=== PATIENT | female | born 1945 | race Two or more races ===

== ENCOUNTER 2018-10-06 05:55 | Day surgery (SDC) | payer OTHER | END 2018-10-06 10:40 | disposition home or self-care (01) | LOC: AMB-ENDOS 05:55 | DX: D13.1 Benign neoplasm of stomach (principal); K57.32 Diverticulitis of large intestine without perforation or abscess without bleeding; K64.2 Third degree hemorrhoids ==

== ENCOUNTER 2021-01-30 07:07 | Day surgery (SDC) | payer OTHER | END 2021-01-30 16:25 | disposition home or self-care (01) | LOC: AMB-ENDOS 07:07 | PROVIDERS: ATTEND Colon & Rectal Surgery | DX: D12.4 Benign neoplasm of descending colon (principal); D13.1 Benign neoplasm of stomach; K44.9 Diaphragmatic hernia without obstruction or gangrene; K64.1 Second degree hemorrhoids; Z20.822 Contact with and (suspected) exposure to COVID-19 ==

== ENCOUNTER 2024-07-18 06:00 | Day surgery (SDC) | payer OTHER ==
[2024-07-11 15:15] VITALS: BP 160/72
[~2024-07-18] VITALS: Ht 152.4 cm; Wt 56.7 kg
[~2024-07-18 06:00] MED LIST: SIMVASTATIN5 MG PO; SYNTHROID112 MCG PO; ZESTRIL20 MG PO
[2024-07-18] MEDS ORDERED: METRONIDAZOLE/SODIUM CHLORIDE 500 MG/100 ML PIGGYBACK IV ONE (10:09)
[2024-07-18] MEDS ORDERED: CEFTRIAXONE SODIUM 2,000 MG VIAL ONE (10:09)
[2024-07-18] MEDS ORDERED: BUPIVACAINE HCL/Mpf 0.5% 10ML VIAL ONE (10:18)
[2024-07-18] MEDS ORDERED: LIDOCAINE HCL 1%/EPINEPHRINE 20ML VIAL IJ ONE (10:18)
[2024-07-18] MEDS ORDERED: POVIDONE-IODINE 118 ML BOTT TOP ONE (10:18)
[2024-07-18] MEDS ORDERED: HEMOSTATIC MATRIX 1 KIT KIT TOP ONE (10:18)
[2024-07-18] MEDS ORDERED: DIBUCAINE 30 GM TUBE ONE (10:18)
[2024-07-18] MEDS ORDERED: MORPHINE SULFATE 4 MG/ML VIAL IV ONE ×2 (12:30→13:00)
[2024-07-18] MEDS ORDERED: ENALAPRILAT DIHYDRATE 1.25 MG/ML VIAL IV ONE ×4 (13:01→13:45)
[2024-07-18] MEDS ORDERED: hydrALAZINE HCL 20 MG VIAL ONE (14:31)
[2024-07-18] MEDS ORDERED: ONDANSETRON HCL 2 MG/ML VIAL ONE (15:20)
== END 2024-07-18 16:30 | disposition home or self-care (01) ==
LOC: CIR.AMB 06:00
PROVIDERS: ATTEND Colon & Rectal Surgery
DX: K64.8 Other hemorrhoids (principal); K64.4 Residual hemorrhoidal skin tags; K57.32 Diverticulitis of large intestine without perforation or abscess without bleeding; K59.01 Slow transit constipation; N81.6 Rectocele; K29.00 Acute gastritis without bleeding; K21.9 Gastro-esophageal reflux disease without esophagitis; Z88.6 Allergy status to analgesic agent; Z88.5 Allergy status to narcotic agent; E11.9 Type 2 diabetes mellitus without complications; I10 Essential (primary) hypertension; E03.9 Hypothyroidism, unspecified